=== PATIENT | female | born 1970 | race Hispanic/Latino ===

== ENCOUNTER → 2020-10-19 | Outpatient (CLI) | payer BC ==
[~2020-10-19] MED LIST: ASPI-1197 PO; ATOR10 PO; LISI20TA24 PO; METF-444 PO
[2020-10-19 17:21] LABS: CREATININE 0.6 mg/dL (0.5-1.5)
== END | disposition home or self-care (01) ==
LOC: LAB 16:38
PROVIDERS: ATTEND Otolaryngology Plastic Surgery within the Head & Neck
DX: K13.70 Unspecified lesions of oral mucosa (principal); I88.9 Nonspecific lymphadenitis, unspecified
CPT/HCPCS: 36415; 82565; 84520

== ENCOUNTER → 2020-10-28 | Outpatient (CLI) | payer BC, OTHER ==
[~2020-10-28] MED LIST changes: +IOHEXOL 350 MG/ML 100ML INFUS..BTL IV ONE
== END | disposition home or self-care (01) ==
LOC: RAH 11:05
PROVIDERS: ATTEND Otolaryngology Plastic Surgery within the Head & Neck
DX: R22.1 Localized swelling, mass and lump, neck (principal)
CPT/HCPCS: 70470; 70492; Q9967